=== PATIENT | female | born 1980 | race Caucasian/White ===

== ENCOUNTER 2017-12-25 13:30 | Outpatient (RCR) | payer OTHER ==
[~2017-12-25 13:30] MED LIST: ASPIRIN E.C. 8181 MG PO; COLACE 100100 MG/CAP PO; FERATE27 MG PO; MOTRIN 600600 MG/TAB PO; PERCOCET 325 MG1 TA2 PO; PRENATAL1 TA1 PO; PROBIOTIC FORMU1 CAP PO; PROFERRIN ES12 MG PO; VALTREX500 MG PO
== END 2017-12-31 | disposition home or self-care (01) ==
LOC: WSST
DX: R41.3 Other amnesia (principal)

== ENCOUNTER → 2018-09-24 | Outpatient (CLI) | payer BC | LOC: MC.RAD 12:54 | DX: N63.10 Unspecified lump in the right breast, unspecified quadrant (principal) | CPT/HCPCS: G0279 ==

== ENCOUNTER → 2019-11-30 | Outpatient (CLI) | payer BC | LOC: COL.RAD 08:15 | DX: R10.11 Right upper quadrant pain (principal) ==

== ENCOUNTER → 2023-11-06 | Outpatient (CLI) | payer BC | LOC: MC.RAD 12:55 | DX: Z12.31 Encounter for screening mammogram for malignant neoplasm of breast (principal) ==